=== PATIENT | female | born 1980 | race African-American/Black ===

== ENCOUNTER 2019-06-19 09:52 | Outpatient (CLI) | payer MEDICARE, MEDICAID, SELFPAY ==
--- NOTE | 2019-06-19 | ECG_ITS ---
Measurements Intervals [place] Rate: 64 P: 19 HI: 184 QRS: 45 QRSD: 81 T: 20 QT: 391 QTc: 406 Interpretive Statements SINUS RHYTHM ST ELEVATION IN DIFFUSE LEADS- PROBABLY EARLY REPOLARIZATION BORDERLINE ECG Electronically Signed On 06-19-2019 17:29:11 POLITICAL ADVISOR by Aung Person D.O.
[2019-06-19 10:29] LABS: Hematocrit 36.5 % (37.0-47.0); Hemoglobin 11.4 g/dL (12.0-15.0)
[2019-06-19 10:45] LABS: Blood Urea Nitrogen 10 mg/dL (7-17); Carbon Dioxide 23 mmol/L (22-30); Chloride 103 mmol/L (98-107); Estimated Glomerular Filt Rate > 60; Glucose 116 mg/dL (65-105); Potassium 3.7 mmol/L (3.4-5.0); Sodium 142 mmol/L (137-145)
== END 2019-06-19 09:53 | disposition home or self-care (01) ==
PROVIDERS: Anesthesiology; Visit Provider Obstetrics & Gynecology
DX: Z01.812 Encounter for preprocedural laboratory examination (principal); R94.31 Abnormal electrocardiogram [ECG] [EKG]
CPT/HCPCS: 36415; 80048; 85014; 85018; 86850; 86900; 86901; 93005

== ENCOUNTER 2019-06-28 00:48 | Day surgery (SDC) | payer MEDICARE, MEDICAID, SELFPAY ==
[2019-06-15 10:53] VITALS: BMI 33.5
[2019-06-28] VITALS (19 sets, daily range): BP systolic 124–146; BP diastolic 77–92; PULSE 53–81; RESP 11–19; TEMP 36.5–36.9; O2SAT 92–100
[2019-06-28] MEDS: LACTATED RINGERS 1,000 ML 30 ML IV CONT ×2 (10:35→14:18)
[2019-06-28 10:43] LABS: Glucose Point of Care 105 (65-105)
--- NOTE | 2019-06-28 10:54 | WPDANESEPPF ---
Anes - Initial Pre Proc Eval Procedure: Operation Date: 06/28/19 12:00 Proposed Procedures p Total Laparoscopic Hysterectomy with Bilateral Salpingectomy - Bridget Gupta MD Date/Time: 06/28/19 10:54 Surgeon: Bridget Gupta MD Pre Op Diagnosis: Menorrhagia, Leiomyoma of the Uterus Patient Data Age: 38 Gender: F Height: 1.8 m Weight: 109 kg Last Vital Signs Temp 36.9 C 06/28/19 10:49 Pulse 67 06/28/19 10:49 Resp 16 06/28/19 10:49 BP 134/91 H 06/28/19 10:49 Pulse Ox 100 06/28/19 10:49 Allergies Allergy/AdvReac Type Severity Reaction Status Date / Time Iodinated Contrast Media Allergy Intermediate LOCAL ARM Verified 06/28/19 10:38 SWELLING AFTER INJECTION Home Medications Medication Instructions Recorded Confirmed Type albuterol sulfate 2 puff INHALATION PRN PRN 06/15/19 06/28/19 History bupropion HCl 300 mg PO DAILY 06/15/19 06/28/19 History diazepam 2 mg PO PRN PRN 06/15/19 06/28/19 History fluoxetine 40 mg PO DAILY 06/15/19 06/28/19 History fluticasone propion-salmeterol 2 puff INHALATION DAILY 06/15/19 06/28/19 History [Advair HFA] ibuprofen 800 mg PO PRN PRN 06/15/19 06/28/19 History metformin 500 mg PO BID 06/15/19 06/28/19 History sumatriptan succinate 25 mg PO DAILY 06/15/19 06/28/19 History Laboratory Tests 06/28/19 10:41 POC Capillary Glucose 105 mg/dl mg/dl (65-105) Patient hx anesthesia problems: none Family hx anesthesia problems: none PMFSH Past Medical History Medical History (Updated 06/28/19 @ 08:14 by Butch London DO) Anxiety Asthma Depression Diabetes type 2, controlled Learning disability Migraine Surgical History Surgical History (Updated 06/28/19 @ 08:14 by Butch London DO) History of History of cholecystectomy Social History Social History (Updated 06/15/19 @ 10:47 by Kalina Carmichael RN) Smoking status: Never smoker Second hand tobacco smoke exposure: No Alcohol intake: never Drinks per week: 0 Substance use: never Substance use type: does not use Living arrangements: with family Occupation/Education: unemployed Gender identity (if verbalized by the patient): Female Spiritual care concerns: No Agree to blood products: Yes Anes - Eval Final PreProcedure Day of Procedure 06/28/19 10:54 Patient weight: obese Heart: regular rate and rhythm Lungs: clear to auscultation and normal air movement Airway: Mallampati scale class II Neurological: alert and oriented Last oral intake: >/= 8 hours ASA classification: III Emergent: no Anesthetic plan: proceed Anesthesia type and monitoring: general ETT and standard monitoring Informed Consent: The patient's anesthetic plan and its attendant risks and benefits were discussed with the patient/family/POA. Questions were solicited and answers provided to the satisfaction of the patient/family/POA.
--- NOTE | 2019-06-28 11:49 | WPDHPUPDATE1 ---
History and Physical Update Update Date/Time: 06/28/19 11:49 History and Physical has been reviewed, including an updated exam of the patient. There are NO changes in the patient's condition. Risks, benefits, and alternatives have been discussed and questions answered. Patient agrees to proceed with procedure.
[2019-06-28] MEDS: ceFAZolin 2 GM/D5W 50 ML 2 GM/50 ML BAG IVPB (12:04)
[2019-06-28] MEDS: BUPIVACAINE/EPINEPHRINE 0.5% 30 ML VIAL INFILTRATE (12:38)
--- NOTE | 2019-06-28 14:19 | PM.OP ---
Procedure Note - Brief Procedure Note - Brief Date of procedure: 06/28/19 Pre-op diagnosis: Menorrhagia, Leiomyoma of the Uterus Post-op diagnosis: same Procedure performed: TLH, bilateral salpingectomy Anesthesia: IAN Surgeon: Bridget Gupta MD Estimated blood loss (mL): 75 Drains: Yes (Romero) Packing: No Pathology: yes Complications: No immediate complications Condition: stable Disposition: PACU Findings: Mildly enlarged fibroid uterus, normal fallopian tubes and ovaries, adhesions of omentum to anterior abdominal wall near umbilicus
[2019-06-28 14:35] LABS: Glucose Point of Care 120 (65-105)
--- NOTE | 2019-06-28 15:45 | OP_ITS ---
DATE OF PROCEDURE: 06/28/2019 PREOPERATIVE DIAGNOSES: Menorrhagia, fibroids. POSTOPERATIVE DIAGNOSES: Menorrhagia, fibroids. PROCEDURE PERFORMED: Total laparoscopic hysterectomy, bilateral salpingectomy. ANESTHESIA: General endotracheal tube. ESTIMATED BLOOD LOSS: 75 mL. COMPLICATIONS: None. FINDINGS: Enlarged fibroid uterus. Normal fallopian tubes and ovaries bilaterally. Adhesions of the omentum to the anterior abdominal wall near and above the umbilicus. INDICATIONS: A 38-year-old with longstanding history of menorrhagia and fibroids. She has had myomectomy twice and multiple blood and iron transfusions. She has tried multiple medical therapies and is now ready for definitive therapy after we discussed the risks, benefits, complications, and alternatives. She opted and signed consent for total laparoscopic hysterectomy with bilateral salpingectomy. DESCRIPTION OF PROCEDURE: For the procedure, she was taken to the operating room, where general anesthesia was obtained. She was prepared and draped in the normal sterile fashion in the dorsal lithotomy position. Marcaine was injected infraumbilically and a 5 mm skin incision was made in the infraumbilical fold with a scalpel. A 5 mm non-bladed trocar was then placed with the camera in the trocar under direct visualization into the peritoneal cavity. Insufflation was begun and she was placed in Trendelenburg. A 10 mm trocar was then placed in the right lower quadrant and a 5 mm trocar in the left lower quadrant. Inspection of the pelvis revealed the findings as noted above. The right fallopian tube was grasped near its insertion to the uterus, clamped, coagulated, and transected, and then the right round ligament was transected and the right utero-ovarian ligament. The bladder flap was then created from the right side, then the left fallopian tube was transected near its insertion to the uterus. The left round ligament and utero-ovarian ligaments were all divided and the bladder flap was created from the left side, meeting the flap from the right. The bladder was pushed down further with the laparoscopic [place]. The left uterine artery was skeletonized, then clamped, coagulated, and transected using the Harmonic Scalpel. Another couple of bites were taken down the broad ligament until the level of the uterosacral ligament had been reached. The right uterine artery was then clamped, coagulated, and transected. Another couple of bites were taken down the broad ligament until the level of the uterosacral ligament had been reached. Both uterosacral ligaments were then divided. A sponge stick was placed in the vagina and pressed against the anterior cul-de-sac. A colpotomy incision was made using the Harmonic Scalpel against the sponge stick. The vagina was then circumferentially incised hugging against the cervix until the uterus and cervix were completely removed from the surrounding vaginal tissue. All operative sites were irrigated and found to be hemostatic, so the cervix was pressed down as far as possible into the vaginal canal. Attention was turned to the vagina. A speculum was placed and the cervix was grasped with single-tooth tenaculum, and then a towel clip and brought easily through the vaginal incision. A moist blue towel was then placed in the vagina to help hold the pneumoperitoneum. Attention was turned back to the abdomen. The vaginal cuff was closed using interrupted 0 Vicryl sutures placed laparoscopically. A total of 4 sutures were used for reapproximation. There was a slight bleeding area at the right side of the vaginal cuff, which was controlled using the Harmonic Scalpel and Bovie cautery and hemaderm also placed on that area. The right fallopian tube was then grasped for stabilization. The mesosalpinx was seri
[2019-06-28] MEDS: HYDROMORPHONE HCL 1 MG/ML INJ 0.5 MG IV PUSH ×2 (16:14→16:32)
[2019-06-28] MEDS: LACTATED RINGERS 1,000 ML 125 ML IV CONT (17:37)
[2019-06-28] MEDS: metFORMIN HCL XR 500 MG TAB.SR.24H PO (19:23)
[2019-06-28] MEDS: ENOXAPARIN 40 MG/0.4 ML SYRINGE SUB-Q (19:25)
[2019-06-28] MEDS: KETOROLAC 30 MG/ML VIAL (*BKC) IV PUSH (19:30)
--- NOTE | 2019-06-28 20:39 | PC.NURSE ---
1657 Pt admitted to room 290 per bed from PACU after Lap assisted vaginal hysterectomy today with Dr. Gupta. Pt awake; VSS and assessment WNL. Pt's significant other present. Oriented to room, staffing and procedures.
[2019-06-29 00:06] VITALS: BP 123/69; PULSE 77; RESP 16; TEMP 36.9; O2SAT 97
[2019-06-29 04:36] VITALS: BP 119/78; PULSE 64; RESP 16; TEMP 36.9; O2SAT 98
[2019-06-29 05:40] LABS: Basophils Percent Auto 0.1 % (0.2-1.2); Hematocrit 33.1 % (37.0-47.0); Hemoglobin 10.6 g/dL (12.0-15.0); Immature Granulocyte Absolute 0.08 K/mm3 (0.00-0.031); Immature Granulocyte Percent A 0.8 % (0-0.5); Lymphocytes Absolute Auto 0.85 K/mm3 (0.9-3.2); Lymphocytes Percent Auto 8.6 % (18.3-44.2); Mean Corpuscular Hemoglobin 26.2 pg (26-34); Mean Corpuscular Volume 81.9 fl (80-100); Mean Platelet Volume 10.6 fl (7.4-10.4); Monocytes Absolute Auto 0.8 K/mm3 (0.1-0.6); Monocytes Percent Auto 7.7 % (2.6-8.5); Neutrophils Absolute Auto 8.2 K/mm3 (1.3-6.7); Neutrophils Percent Auto 82.8 % (45.5-73.1); Platelet Count Result 259 k/mm3 (150-375); Red Blood Count 4.04 M/mm3 (4.2-5.4); White Blood Count 9.9 K/mm3 (4.5-10.0)
[2019-06-29 05:44] LABS: Blood Urea Nitrogen 7 mg/dL (7-17); Calcium 8.6 mg/dL (8.4-10.2); Carbon Dioxide 25 mmol/L (22-30); Chloride 99 mmol/L (98-107); Estimated CRCL calculation 150 ml/min; Estimated Glomerular Filt Rate > 60; Glucose 144 mg/dL (65-105); Potassium 3.7 mmol/L (3.4-5.0); Sodium 137 mmol/L (137-145)
--- NOTE | 2019-06-29 07:41 | WPDANESPN ---
Anes - Prog Note Post-Op Date/Time: 06/29/19 07:41 Cardiovascular status: normal Respiratory status: normal Airway patency: baseline Mental status: baseline Post-Op hydration status: normal Vital Signs: Last Vital Signs Temp 36.9 C 06/29/19 04:36 Pulse 64 06/29/19 04:36 Resp 16 06/29/19 04:36 BP 119/78 06/29/19 04:36 Pulse Ox 98 06/29/19 04:36 I/O: Intake & Output 06/28/19 06/28/19 06/29/19 15:59 23:59 07:59 Intake Total 150 520 Output Total 400 Balance 150 120 Laboratory Tests 06/29/19 04:47 06/29/19 04:47 06/28/19 06/28/19 06/29/19 10:41 14:32 04:47 WBC 9.9 RBC 4.04 L Hgb 10.6 L Hct 33.1 L MCV 81.9 MCH 26.2 MCHC 32.0 RDW 13.0 Plt Count 259 MPV 10.6 H Immature Gran % (Auto) 0.8 H Neut % (Auto) 82.8 H Lymph % (Auto) 8.6 L [place] % (Auto) 7.7 Eos % (Auto) 0.0 Baso % (Auto) 0.1 L Lymph # (Auto) 0.85 L [place] # (Auto) 0.8 H Eos # (Auto) 0.0 Baso # (Auto) 0.0 Abs Immat Gran (auto) 0.08 H Absolute Neuts (auto) 8.2 H Absolute Nucleated RBC 0.0 Nucleated RBC % 0.0 Sodium Potassium Chloride Carbon Dioxide BUN Creatinine Estim Creat Clear Calc Estimated GFR Glucose POC Capillary Glucose 105 120 H Calcium 06/29/19 04:47 WBC RBC Hgb Hct MCV MCH MCHC RDW Plt Count MPV Immature Gran % (Auto) Neut % (Auto) Lymph % (Auto) [place] % (Auto) Eos % (Auto) Baso % (Auto) Lymph # (Auto) [place] # (Auto) Eos # (Auto) Baso # (Auto) Abs Immat Gran (auto) Absolute Neuts (auto) Absolute Nucleated RBC Nucleated RBC % Sodium 137 Potassium 3.7 Chloride 99 Carbon Dioxide 25 BUN 7 Creatinine 0.60 L Estim Creat Clear Calc 150 Estimated GFR > 60 Glucose 144 H POC Capillary Glucose Calcium 8.6 Post-procedural complaints: none Patient Feedback: Patient satisfied with anesthetic care.
--- NOTE | 2019-06-29 07:44 | PM.GYNPNOP ---
SHIFT BOSS - A/P Postoperative Procedures: Procedures Operation Date: 06/28/19 12:00 Actual Procedures Side Surgeon p Total Laparoscopic Hysterectomy with Bilateral Salpingectomy Bridget Gupta MD Postoperative day: 1 (s/p hysterectomy) Postoperative status: doing well Postoperative plan: routine post-op care and discharge (and follow up in office in 1 week) Time Spent With Patient Time: Total time spent is greater than 50% in coordination of care (as documented) at patient's floor/unit and/or counseling patient: Time with patient: less than 15 minutes SHIFT BOSS- PN:Subj Post-Op Subjective Date/time seen: 06/29/19 07:44 Subjective: patient has no complaints, pain is well controlled and other (Tolerating regular diet. + flatus. Voiding without problems) Exam Const: General: no acute distress Resp: Auscultation: clear to auscultation bilaterally Cardio: Rate: regular rate Rhythm: regular rhythm GI: Inspection: non-distended and incision (Intact without erythema, drainage, or induration) GI Palp: Yes abdominal tenderness (appropriate) and Yes Soft to palpation Extrem: General: no edema SHIFT BOSS - PN: Obj Data Vital Signs Vital Signs: Vital Signs - 24 hr 06/28/19 10:49 06/28/19 14:17 06/28/19 14:30 Temperature 36.9 C 36.5 C Pulse Rate 67 64 69 Respiratory Rate 16 19 16 Blood Pressure 134/91 H 140/82 Pulse Oximetry 100 97 100 06/28/19 14:45 06/28/19 15:00 06/28/19 15:15 Temperature Pulse Rate 74 68 59 L Respiratory Rate 12 13 12 Blood Pressure 140/87 146/82 H 138/83 Pulse Oximetry 100 97 96 06/28/19 15:30 06/28/19 15:45 06/28/19 16:00 Temperature Pulse Rate 53 L 54 L 72 Respiratory Rate 13 14 15 Blood Pressure 139/82 129/81 132/83 Pulse Oximetry 94 94 96 06/28/19 16:15 06/28/19 16:30 06/28/19 16:40 Temperature Pulse Rate 72 79 62 Respiratory Rate 11 L 19 12 Blood Pressure 137/89 134/84 137/82 Pulse Oximetry 97 96 92 06/28/19 17:15 06/28/19 17:30 06/28/19 18:00 Temperature 36.8 C Pulse Rate 69 70 64 Respiratory Rate 18 Blood Pressure 133/80 135/81 141/92 H Pulse Oximetry 96 97 98 06/28/19 18:08 06/28/19 18:30 06/28/19 19:30 Temperature 36.9 C Pulse Rate 66 81 70 Respiratory Rate 16 Blood Pressure 124/83 140/77 128/85 Pulse Oximetry 97 98 06/28/19 20:30 06/29/19 00:06 06/29/19 04:36 Temperature 36.9 C 36.9 C Pulse Rate 70 77 64 Respiratory Rate 16 16 Blood Pressure 140/92 H 123/69 119/78 Pulse Oximetry 97 97 98 Intake/Output Intake/Output: Intake & Output 06/26/19 06/27/19 06/28/19 06/29/19 23:59 23:59 23:59 23:59 Intake Total 670 Output Total 400 Balance 270 Meds/Results Medications: Active Medications Generic Name Dose Route Start Last Admin Trade Name Freq PRN Reason Stop Dose Admin Hydrocodone Bitart/Acetaminophen 1 tab 06/28/19 16:46 [place] 5-325 Mg PO Q3H PRN Pain Rated 5 or Less Hydrocodone Bitart/Acetaminophen 1 tab 06/28/19 16:46 06/29/19 05:03 [place] 10-325 Mg PO 1 tab Q3H PRN Administration Pain Rated 6 or Greater Albuterol 2 puff 06/28/19 16:46 Proventil Hfa INHALATION PRN PRN Shortness Of Breath Bupropion HCl 300 mg 06/29/19 09:00 Wellbutrin Xl (24 Hr) PO DAILY DOUGLAS Diazepam 2 mg 06/28/19 16:46 Valium Po PO PRN PRN Anxiety Docusate Sodium 100 mg 06/28/19 17:00 06/28/19 17:39 Colace Capsule PO Not Given BID DOUGLAS Enoxaparin Sodium 40 mg 06/28/19 20:00 06/28/19 19:25 Lovenox SUB-Q 40 mg DAILY DOUGLAS Administration Fluoxetine HCl 40 mg 06/29/19 09:00 Prozac PO DAILY DOUGLAS Lactated Ringer's 1,000 mls @ 125 mls/hr 06/28/19 16:46 06/28/19 17:37 Lr - Lactated Ringers Iv IV CONT 125 mls/hr .Q8H DOUGLAS Administration Ibuprofen 600 mg 06/28/19 16:46 Motrin PO Q6H PRN Cramping Ketorolac Tromethamine 30 mg 06/28/19 16:46 06/28/19 19:30 Toradol Inj IV PUSH 07/03/19 16:47 30 mg Q
--- NOTE | 2019-06-29 07:45 | PM.DS ---
DS: Diagnosis Admitting Diagnosis Admitting Diagnosis: Type 2 diabetes mellitus without complications Discharge Diagnosis (1) Leiomyoma: Code(s): D21.9 - Benign neoplasm of connective and other soft tissue, unspecified Status: Acute DS: Summary Status at Discharge Functional status at discharge: independent ambulation Overall status at discharge: patient is progressing back to baseline Time Spent with Patient Time attestation: Total time spent providing and/or coordinating discharge services: Time spent: Less than 30 minutes DS: Data Data Completed and Pending Pending studies at discharge: Pending at discharge 06/28/19 13:41 Surgical [PTH] Routine Labs on day of discharge: Labs from last 24 hours 06/29/19 06/29/19 06/28/19 04:47 04:47 14:32 WBC 9.9 RBC 4.04 L Hgb 10.6 L Hct 33.1 L MCV 81.9 MCH 26.2 MCHC 32.0 RDW 13.0 Plt Count 259 MPV 10.6 H Immature Gran % (Auto) 0.8 H Neut % (Auto) 82.8 H Lymph % (Auto) 8.6 L [place] % (Auto) 7.7 Eos % (Auto) 0.0 Baso % (Auto) 0.1 L Lymph # (Auto) 0.85 L [place] # (Auto) 0.8 H Eos # (Auto) 0.0 Baso # (Auto) 0.0 Abs Immat Gran (auto) 0.08 H Absolute Neuts (auto) 8.2 H Absolute Nucleated RBC 0.0 Nucleated RBC % 0.0 Sodium 137 Potassium 3.7 Chloride 99 Carbon Dioxide 25 BUN 7 Creatinine 0.60 L Estim Creat Clear Calc 150 Estimated GFR > 60 Glucose 144 H POC Capillary Glucose 120 H Calcium 8.6 06/28/19 10:41 WBC RBC Hgb Hct MCV MCH MCHC RDW Plt Count MPV Immature Gran % (Auto) Neut % (Auto) Lymph % (Auto) [place] % (Auto) Eos % (Auto) Baso % (Auto) Lymph # (Auto) [place] # (Auto) Eos # (Auto) Baso # (Auto) Abs Immat Gran (auto) Absolute Neuts (auto) Absolute Nucleated RBC Nucleated RBC % Sodium Potassium Chloride Carbon Dioxide BUN Creatinine Estim Creat Clear Calc Estimated GFR Glucose POC Capillary Glucose 105 Calcium Discharge Plan Discharge Patient Disposition: Home, Self-Care Follow-up/Referrals: Bridget Gupta MD [Physician] - 1 Week Discharge Medications: New hydrocodone-acetaminophen 5-325 mg Tablet 1 tab PO Q3H PRN (Reason: Pain Rated 5 Or Less) Qty: 30 RF: 0 ibuprofen 600 mg Tablet 600 mg PO Q6H PRN (Reason: Cramping) Qty: 60 RF: 0 Continued sumatriptan succinate 25 mg tablet 25 mg PO DAILY RF: 0 diazepam 2 mg tablet 2 mg PO PRN PRN (Reason: Anxiety) RF: 0 fluoxetine 10 mg capsule 40 mg PO DAILY RF: 0 albuterol sulfate 90 mcg/actuation HFA aerosol inhaler 2 puff INHALATION PRN PRN (Reason: SOB) RF: 0 bupropion HCl 150 mg tablet extended release 24 hr 300 mg PO DAILY RF: 0 Advair HFA 45-21 mcg/actuation HFA aerosol inhaler 2 puff INHALATION DAILY RF: 0 metformin 500 mg tablet extended release 24 hr 500 mg PO BID RF: 0 Discontinued ibuprofen 800 mg tablet 800 mg PO PRN PRN (Reason: Pain) RF: 0 Other Ambulatory Orders: CA 12 lead EKG (Stat) Timeframe: 3 Months Location: Determined by Patient Ordered By: Butch London Quality VTE Prophylaxis VTE prophylaxis: mechanical ordered and pharmacologic ordered
[2019-06-29 07:50] VITALS: BP 109/65; PULSE 84; RESP 16; TEMP 37.4; O2SAT 96
[2019-06-29] MEDS: IBUPROFEN 600 MG TABLET PO ×2 (08:32→14:43)
[2019-06-29] MEDS: metFORMIN HCL XR 500 MG TAB.SR.24H PO ×2 (08:34→16:53)
[2019-06-29] MEDS: SIMETHICONE 80 MG TAB.CHEW PO ×2 (08:34→14:44)
[2019-06-29] MEDS: DOCUSATE SODIUM 100 MG CAPSULE PO ×2 (08:34→16:55)
[2019-06-29] MEDS: ENOXAPARIN 40 MG/0.4 ML SYRINGE SUB-Q (08:35)
[2019-06-29] MEDS: buPROPion HCL XL (24 HR) 150 MG TABCR 300 MG PO (08:36)
[2019-06-29] MEDS: FLUOXETINE HCL 20 MG CAP 40 MG PO (08:37)
--- NOTE | 2019-06-29 15:14 | PC.NURSE ---
The assessment charted at 1514 was actually done at 0835
== END 2019-06-29 18:26 | disposition home or self-care (01) ==
LOC: ANHSURGERY 09:54 → ANHOB2 18:08
PROVIDERS: Visit Provider Obstetrics & Gynecology
PROC: 0UT9FZZ Resection of Uterus, Via Natural or Artificial Opening With Percutaneous Endoscopic Assistance (ICD-10-PCS; CPT 58571; principal; 2019-06-28 12:00)
DX: N92.0 Excessive and frequent menstruation with regular cycle (principal); D25.1 Intramural leiomyoma of uterus; N80.0 Endometriosis of uterus; N73.6 Female pelvic peritoneal adhesions (postinfective); J45.909 Unspecified asthma, uncomplicated; E11.9 Type 2 diabetes mellitus without complications; F41.8 Other specified anxiety disorders; Z79.84 Long term (current) use of oral hypoglycemic drugs; E66.9 Obesity, unspecified; Z68.33 Body mass index [BMI] 33.0-33.9, adult
CPT/HCPCS: 58571; 36415; 80048; 85025; 88307; 94640; 99199; A9270; J0131; J0330; J0690; J1100; J1170; J1650; J1885; J2250; J2405; J2704; J3010; J7030; J7120

== ENCOUNTER 2020-09-09 13:50 | Outpatient (CLI) | payer MEDICARE, MEDICAID, SELFPAY ==
--- NOTE | ~2020-09-09 | MR_ITS ---
EXAMINATION: MR shoulder LT wo con DATE: 09/09/2020 15:09 INDICATION: Left shoulder pain. TECHNIQUE: Magnetic resonance imaging (MRI) of the left shoulder was performed without intravenous co ntrast. Sequences included axial PD-weighted FS FSE, coronal oblique PD-weighted FS FSE and T2-weight ed FS FSE, and sagittal oblique T2-weighted FS FSE and T1-weighted FSE. COMPARISON: None. FINDINGS: Coracoacromial arch: The acromion undersurface is curved in morphology (type II). The acromioclavicular joint is normal. T here is mild subacromial/subdeltoid bursitis. Rotator cuff: There is mild supraspinatus and infraspinatus tendinopathy. Teres minor tendon is normal. Subscapular is tendon is normal. There is no asymmetric fatty atrophy of the rotator cuff muscle bellies. Biceps tendon and glenoid labrum: Biceps tendon is in bicipital groove. Intra-articular biceps tendon is normal. The glenoid labrum is normal. Fluid: There is no glenohumeral joint effusion. Bones/cartilage/other: The glenoid cartilage is normal. Humeral head cartilage is normal. There is a small partial tear at t he deltoid myotendinous junction laterally. IMPRESSION: 1. Mild rotator cuff tendinopathy. No tear. 2. Small partial tear at the deltoid myotendinous junction laterally. 3. Mild subacromial/subdeltoid bursitis. Reviewed, dictated and finalized at location A.
== END 2020-09-09 13:51 | disposition home or self-care (01) ==
PROVIDERS: PCP Nurse Practitioner; Visit Provider Nurse Practitioner
DX: M25.512 Pain in left shoulder (principal); M75.82 Other shoulder lesions, left shoulder; S46.812A Strain of other muscles, fascia and tendons at shoulder and upper arm level, left arm, initial encounter; M75.52 Bursitis of left shoulder
CPT/HCPCS: 73221